=== PATIENT | male | born 1965 | race Caucasian/White ===

== ENCOUNTER 2016-11-08 06:15 | Inpatient (IN) | payer OTHER, MEDICAID ==
[~2016-11-08] VITALS: Ht 200.7 cm; Wt 95.7 kg
[2016-11-08] VITALS (12 sets, daily range): BP systolic 94–132; BP diastolic 60–90; PULSE 61–80; RESP 9–20; O2SAT 94–100
[~2016-11-08 06:15] MED LIST: BUPR100T7 PO; CeFAZolin Inj 2 GM in IV Premix 1 EACH IV SCH; GABA-502 PO; HYDR-3605 PO; IBUP800T28 PO; LORA1TAB PO; Lactated Ringer's 1,000 ML IV ONE; MULT-1018 PO; OMEP20TA86 PO; PROP60TA17 PO; QUET400T35 PO; VIT1TABL83 PO; Vancomycin Inj 1,000 MG in IV Premix 1 EACH IV ONE
[2016-11-08] MEDS ORDERED: Lactated Ringer's 1,000 ML IV ONE ×3 (06:51→10:53)
--- NOTE | 2016-11-08 07:10 | PCM.HPANE ---
Patient Data Surgeon Admitting Provider: Attending Provider:Tate Olsen DO Primary Care Physician:Tate Grant MD Other Provider:David Crouch Anesthesia Reason for Visit Right Hip Loosening Of Prosthetic RIGHT HIP LOOSENING OF PROSTHETIC Ht/WT & BMI Height (Feet): 6 Height (Inches): 7.00 Weight (Kilograms): 95.7 Body Mass Index 23.00 Allergies Coded Allergies: lisinopril (Verified Allergy, Unknown, 10/29/16) Past Anesthesia History Anesthesia History: Denies:: Abnormal Airway, Anesthesia Reactions, Difficult Intubation, Fam Anesthesia Reaction, Fam Malignant Hypertherm, Malignant Hyperthermia Diabetes History Hx Diabetes?: No Medications Home Meds Incl Beta Naila: Yes Reported Medications Bupropion ER (Wellbutrin SR)100 Mg Tablet.er200 Mg PO DAILY Ref 0 10/29/16 Vit B Comp/C/FA/Iron/Vit E (Vitamin B Complex Tablet)1 Each Tablet1 Each PO DAILY 10/29/16 Quetiapine Fumarate 400 Mg [id number] Mg PO DAILY Ref 0 10/29/16 Propranolol HCl 60 Mg [id number] Mg PO BID 10/29/16 Omeprazole 20 Mg Tablet.dr20 Mg PO DAILY 10/29/16 Multivitamin (Multi Vitamin Daily)1 Each Tablet1 Each PO DAILY 30 Days Ref 0 10/29/16 Lorazepam 1 Mg Tablet2 Mg PO TID PRN For Anxiety Ref 0 10/29/16 Ibuprofen 800 Mg [id number] Mg PO TID PRN For Pain Ref 0 10/29/16 HydrOXYzine HCl 10 Mg [id number] Mg PO DAILY PRN For Anxiety Ref 0 10/29/16 Gabapentin 300 Mg [id number] Mg PO TID Ref 0 10/29/16 History History of ENT Problems?: No HEENT History: Denies:: Abnormal Airway Cataracts Difficult Intubation Dysphagia Glaucoma Hearing Problem Sinus Problem TMJ Denture Type: None Teeth Condition: Within Normal Limits Hx of Heart Problems?: Yes Cardiovascular History: Denies:: AICD Abdominal Aortic Aneurism Atrial Fibrillation Cardiac Surgery Chest Pain Congestive Heart Failure Coronary Artery Disease Edema Heart Murmur Hypertension Irregular Heartbeat Pacemaker Peripheral Vascular Rheumatic Fever Thrombophlebitis Valvular Heart Disease Hx of Respiratory Problem?: No Respiratory History: Denies:: Asthma COPD Chest Surgery Cough Dyspnea Emphysema Hemoptysis Oxygen Administration Pneumonia Pulmonary Embolism Tuberculosis Use of C-PAP Machine Use of Inhalers / NEBS Hx Neurologic Problems?: Yes Neurological History: Positive for:: Peripheral Neuropathy Denies:: Alzheimer's Disease CVA Dementia Dizziness Headaches Multiple Sclerosis Parkinson's Disease Seizures TIA Other Neurological Pertinent: hx of guillian barre syndrome 2012- neuropathies Hx of GI Problems?: Yes Gastrointestinal History: Denies:: Cirrhosis Diverticulitis Gall Bladder Disease Gastroesphageal Reflux Gastrointestinal Bleeding Heartburn Hepatitis Hiatal Hernia Liver Disease Rectal Bleeding Hx of Problems?: No Genitourinary History: Denies:: HX of Hemodialysis Kidney Stones Urinary Tract Infection Male Hx: Denies:: Prostate Problems Scrotal Mass Testicular Surgery Skin History: Denies:: History Skin Disorders? Pressure Ulcers Hx Musculoskeletal Problems?: Yes Musculoskeletal History: Positive for:: Joint Replacement (prior right hip ( failure)) Musculoskeletal Trauma (right hip current admission problem) Osteoarthritis Denies:: Back Injury Degenerative Joint Fibromyalgia Myasthenia Gravis Rheumatoid Arthritis Systemic Lupus Hx of Psycho/Social Problems?: Yes Psycho Social History: Positive for:: Anxiety Hx Depression Denies:: Bipolar Disorder Suicide Attempt Hx Surgeries?: Yes (right total hip) Hx Any Other Health Problems?: Yes Other History: Denies:: Cancer Endocrine Disease Hospitalization Thyroid Disease History Blood Transfusions: Denies:: Accept Blood Products? Blood Transfuse Reaction Blood Transfusions Hx Diabetes: No Hx Alcohol Use: Yes (prior hx of etoh abuse)Hx Substance Use: No Smoking Status: Former Smoker Have You Smoked inLast 12 mo: No Stop/Bang S-Snoring: Do You Snore Loudly: No T-Tired: feel tired, fatigued: Yes O-Obsered: Observed not breath: Yes P-Blood Pressure: treated: Yes B- Body Mass Index > 35 kg/m2: No A- Age over 50: Yes N- Neck Large Circumference: No G- Gender Male: Yes CAROL Total Score: 5 Risk Assessment Category Category 1A: Patient has history of documented sleep apnea, and HAS NOT received any narcotic, sedative or anesthesia administration during this stay. Category 1B: Patient has history of documented sleep apnea, and HAS received any narcotic , sedative or anesthesia administration during this stay Category 2: Patient has SUSPECTED Obstructive Sleep Apnea, and HAS received any narcotic , sedative or anesthesia administration during this stay. Category 3: Patient has SUSPECTED Obstructive Sleep Apnea and HAS NOT received narcotic, sedative or anesthesia administration during this stay. Category 4: Outpatient in Procedural Areas with known sleep apnea or who screen positive for High Risk via the STOP/BANG questionnaire. Exam Exam Vital Signs Vital Signs Date Time Temp Pulse Resp B/P Pulse Ox O2 Delivery O2 Flow Rate FiO2 11/08/16 07:00 80 20 127/90 96 Room Air General Appearance: Alert, Oriented X3, Cooperative HEENT/AIRWAY: MP 2, Neck Movement (50% expected ROM), Mouth Opening (WNL) Lungs: Clear to Auscultation Heart: Exam Unremarkable Meds/Labs/Diagnostics Admission Meds Current Medications Vancomycin/0.9 % Sod Chloride 1000 mg/Premix 200 ml @ 133.333 mls/hr PREOP ONCE IV Last administered on 11/08/16 06:52; Start 11/08/16 at 06:00; Stop at 07:29 Lactated Ringer's (Lr) 1,000 ml @ ud STK-MED ONCE IV Last administered on 11/08 06:51; Start 11/08/16 at 06:51; Stop 11/08/16 at 06:52; Status DC Plan Impression Patient chart reviewed, patient interviewed and anesthestic plan with risks, benefits, and alternatives discussed, and informed consent obtained. ASA Physical Status: ASA2 Mod Systemic Disease Anesthetic Plan: GA Bene/Risks/Altern/Consents: Yes HP Complete Prior to Induction: Yes Other Patient declines SAB with Morphine. Prefers Straight GA. Denies ETOH in last two days. Denies Abusing ETOH > 1 year. Hadley Angulo MD Nov 08, 2016 07:10
[2016-11-08] MEDS ORDERED: Bupivacaine Liposome 1.3% 20 mL Inj ONE (07:16)
[2016-11-08] MEDS: Tranexamic Acid Inj 1,000 MG in 0.9% Sodium Chloride 100 ML IV SCH ×2 (08:00→11:23)
--- NOTE | 2016-11-08 08:18 | DRSVH ---
PROCEDURE: X-RAY PELVIS ONE OR TWO VIEWS ([id number]) INDICATIONS: RIGHT FAILED HIP TECHNIQUE: One view of the lower pelvis acquired. COMPARISON: [place], [place], BONE SCAN WHOLE BODY, 03/21/2015, 13:15. [facility] [place], [place], XR PELVIS W LATERAL HIP RT, 03/07/2015, 11:39. [facility], [place], XR PELVI S W LATERAL HIP RT, 06/24/2016, 11:17. FINDINGS: Bones: Patient is status post right hip arthroplasty, with hardware components in expected positions . The hip joint appears congruent. The visualized bony structures appear intact. Periprosthetic law cency again seen involving the proximal femoral stem component not significantly changed from the jeimy or examination. There is mild left hip joint degeneration and minimal degenerative change within the lower lumbar spine. Soft tissues: Overlying postoperative changes are noted. No suspicious soft tissue densities. IMPRESSION: 1. Stable positioning right hip arthroplasty and persistent periprosthetic lucency along the femoral stem redemonstrated. Dictated by: Nabeel NICOLE Interpreted: Emily Vasquez MD on 11/08/2016 at 8:10 Transcribed by: PATEL on 11/08/2016 at 11:17 Approved by: Emily Vasquez M.D. on 11/08/2016 at 16:52
[2016-11-08] MEDS ORDERED: Lactated Ringer's 1,000 ML IV SCH (08:19)
[2016-11-08] MEDS ORDERED: Lactated Ringer's 500 ML IV PRN (08:19)
[2016-11-08] MEDS ORDERED: Ondansetron 2 mg/mL 2 mL Inj IVPUSH PRN ×2 (08:20→12:10)
[2016-11-08] MEDS ORDERED: Dexamethasone 4 mg/mL Inj IVPUSH PRN (08:20)
[2016-11-08] MEDS ORDERED: HYDROmorphone 1 mg/mL Inj IVPUSH PRN ×2 (08:20→12:10)
[2016-11-08] MEDS ORDERED: Labetalol 5 mg/mL 20 mL Inj IV PRN (08:20)
[2016-11-08] MEDS ORDERED: Atropine 0.4 mg/mL Inj IVPUSH PRN (08:20)
[2016-11-08] MEDS ORDERED: Phenylephrine 10,000 mCg/mL Inj IVPUSH PRN (08:20)
[2016-11-08] MEDS ORDERED: fentaNYL-PF 50 mCg/mL 2 mL Inj IVPUSH PRN (08:20)
[2016-11-08] MEDS ORDERED: EPHEDrine Sulfate 50 mg/mL Inj IVPUSH PRN (08:20)
[2016-11-08] MEDS ORDERED: Bupivacaine-MPF 0.25% 30 mL Inj INFILTRATE ONE (08:27)
[2016-11-08] MEDS ORDERED: 0.9% Sodium Chloride 10 mL Inj INFILTRATE ONE (08:27)
[2016-11-08] MEDS ORDERED: Bupivacaine Liposome 1.3% 20 mL Inj INFILTRATE ONE (08:27)
[2016-11-08] MEDS ORDERED: Polyethylene Glycol (PEG) 17 Gm Powder PO PRN (12:10)
[2016-11-08] MEDS ORDERED: Magnesium Hydroxide 10 mL Oral Concentration PO PRN (12:10)
[2016-11-08] MEDS ORDERED: diphenhydrAMINE 25 mg Capsule PO PRN (12:10)
--- NOTE | 2016-11-08 12:57 | DRSVH ---
PROCEDURE: X-RAY PELVIS W/LAT HIP (RT) ([id number]) INDICATIONS: post op- long stem TECHNIQUE: AP pelvis and lateral view of the right hip acquired. COMPARISON: [facility], [place], XR PELVIS W LATERAL HIP RT, 06/24/2016, 11:17. [facility] [place], [place], XR PELVIS W LATERAL HIP RT, 03/07/2015, 11:39. FINDINGS: There has been an interval revision of the right hip arthroplasty with a total right hip arthroplasty and a medium to long right femoral stem. A metallic prosthetic components are intact. No periprost atic fractures are evident. There is no dislocation. Expected postoperative changes within the soft tissues overlying the right hip are present with areas of soft tissue edema and soft tissue air. No unexpected radiopaque foreign bodies are appreciated. IMPRESSION: Expected postoperative changes related to interval revision of the right hip arthroplasty . Dictated by: Humphrey Steward M.D. on 11/08/2016 at 11:54 Approved by: Humphrey Steward M.D. on 11/08/2016 at 11:55
[2016-11-08] MEDS: 0.9% Sodium Chloride 1,000 ML IV SCH (13:23)
[2016-11-08] MEDS ORDERED: Propofol 10,000 mCg/mL 20 mL Inj ONE (13:24)
[2016-11-08] MEDS ORDERED: Phenylephrine/NS 100 mCg/mL 10 mL Syringe IVPUSH ONE (13:24)
[2016-11-08] MEDS ORDERED: Glycopyrrolate 0.2 MG/ML 1mL Inj ONE (13:24)
[2016-11-08] MEDS ORDERED: EPHEDrine/NS 5 mg/mL 5 mL Syringe ONE (13:24)
[2016-11-08] MEDS ORDERED: HYDROmorphone 1 mg/mL Inj ONE (13:24)
[2016-11-08] MEDS ORDERED: fentaNYL-PF 50 mCg/mL 2 mL Inj ONE (13:24)
[2016-11-08] MEDS ORDERED: Rocuronium 10 mg/mL 5 mL Inj ONE (13:24)
[2016-11-08] MEDS ORDERED: Neostigmine 1 mg/mL 10 mL Inj ONE (13:24)
--- NOTE | 2016-11-08 13:40 | PCM.ANEP1 ---
Post Anesthesia PACU Phase 1 Assessment Vital Signs Vital Signs Date Time Temp Pulse Resp B/P Pulse Ox O2 Delivery O2 Flow Rate FiO2 11/08/16 13:32 36.5 61 16 120/81 100 Nasal Cannula 2.00 11/08/16 12:59 72 14 107/66 99 Nasal Cannula 4 11/08/16 12:50 66 10 100/63 99 Nasal Cannula 4 11/08/16 12:39 36.6 68 11 96/60 94 Nasal Cannula 4 11/08/16 12:30 63 11 94/67 99 Nasal Cannula 4 11/08/16 12:25 68 14 106/69 95 Nasal Cannula 4 11/08/16 12:20 67 12 100/67 98 Nasal Cannula 4 11/08/16 12:15 36.4 68 9 102/69 100 Simple Mask 8 11/08/16 07:00 80 20 127/90 96 Room Air Anesthetic Administered: GA Level of Alertness: Awake, talking ZAIDI's with Equal Strength: Yes Pain: Yes (8-9 pain) Nausea or Vomiting: No CV Function & Hydration Stable: Yes Airway Device: Oxygen Delivery: Room Air Lungs: Clear to Auscultation PACU Phase 2 Assessment Complications: No Follow up Care: No Patient Instructions Provided: N/A Hadley Angulo MD Nov 08, 2016 13:40
[2016-11-08] MEDS: Pantoprazole 20 mg ER24 Tablet PO SCH (14:06)
[2016-11-08] MEDS ORDERED: HYDROXYZINE 10 MG PO PRN (14:10)
--- NOTE | 2016-11-08 14:19 | PCM.CHPMED ---
Subjective Date of Service: Nov 08, 2016 Primary Physician: Admitting Physician: Tate Olsen DO Primary Care Physician: Tate Grant MD Attending Physician: Tate Olsen DO History of Present Illness: Patient is a 51 yo male with pmh of anxiety, alcohol abuse, guillain barre syndrome (2010), HTN, who has been admitted after a total hip replacement. Patient has had partial hip replacement after his ground level fall, however pain never improved and is admitted for full replacement. The procedure was today, and went well. He complains of pain, however says its in control with pain meds. He is post anesthesia, so his speech is slightly slow. He mentioned he has had alcohol withdrawls causing seizures in the past. He remembers his last drink being about 7 days ago. Review of Systems: Constitutional: Denies: Chills, Fever, Malaise, Other, Sweats, Weakness Eyes: Denies: Blurred Vision, Conjunctive Inflammation, Double Vision, Eyelid Inflammation, Other, Pain, Redness, Vision Changes ENT: Denies: Dental Problems, Dysphagia, Ear Discharge, Ear Pain, Hoarseness, Membranes Dry, Nasal Congestion, Nose Discharge, Nose Pain, Other, Throat Pain, Tinnitus, Ulcers/Sores in Mouth Neck: Denies: Mass, Other, Pain, Swelling Cardiovascular: Denies: Chest Pain, Edema, Irregular Heart Rate, Other, Palpitations, Rapid Heart Rate, SOB on Exertion, SOB while laying flat Respiratory: Denies: Cough, Cough with bloody sputum, Other, SOB with Exertion , Shortness of Breath, Snoring, Sputum, Wake up Gasping for Breath, Wake up SOB , Wheezing Gastrointestinal: Denies: Abdominal Pain, Black tarry stools, Blood in stool ( red), Change in Appetite, Constipation, Diarrhea, Heartburn, Nausea, Other, Use of Laxatives, Vomiting Genitourinary: Denies: Change in Frequency, Decrease Urinary Output, Decrease Urinary Stream, Dysuria, Has burning or pain with urination, Hematuria, Hemodialysis, Incontinence, No burning or pain with urination, Nocturia, Other, Peritoneal Dialysis Reproductive Male: Denies: Erectile Dysfunction, Other, Sexually Active, Venereal Disease Musculoskeletal: Reports: Other (as per HPI) Skin: Denies: Blisters, Bruising, Dry or Flakiness, Itching, Lesions, Other, Rash, Redness, Ulcers Neurological: Denies: Change in LOC, Change in Speech, Confusion, Difficulty Walking, Dizziness, Double Vision, Drooping Mouth, Incoordination, Localized Weakness, Numbness, Other, Seizures, Somnolence, Tremors, Vertigo Psychologic: Denies: Agitation, Anxiety, Depression, Insomnia, Other, PTSD- Post Traumatic Stress Disorder, Suicidal Thoughts Endocrine: Denies: Abnormal Hair Growth, Blood Glucose Review, Diaphoresis, Excessive Thirst, Intolerant to Cold, Intolerant to Heat, Other, Recent A1C, Urinating Frequently, Weight Gain Hematologic: Denies: Abnormal Bleeding, Bruising, Other Lymphatic: Denies: Adenopathy, Swollen Lymph Node Above Collarbone, Swollen Lymph Nodes in Neck, Tender Lymph Nodes Axillia, Tender Lymph Nodes Groin PMH Past Medical History Guillain Lizemores HTN Anxiety Alcohol abuse with severe withdrawls Hx Diabetes: No Allergies: Coded Allergies: lisinopril (Verified Allergy, Unknown, 10/29/16) Social History Hx Alcohol Use: Yes (prior hx of etoh abuse)Hx Substance Use: No Smoking Status: Former Smoker Exam Vital Signs Vital Sign - Last Date Time Temp Pulse Resp B/P Pulse Ox O2 Delivery O2 Flow Rate FiO2 11/08/16 13:58 Supplement Oxygen 11/08/16 13:32 36.5 61 16 120/81 100 2.00 Intake and Output 11/07/16 11/07/16 11/08/16 Cumulative From/Thru 15:00 23:00 07:00 10/29/16 15:19 - 11/08/16 06:55 Intake Total 200 ml 200 ml Balance 200 ml 200 ml Intake IV Total 200 ml 200 ml General: Alert, Oriented X3, Cooperative Head: Normal Eyes: PERRLA Mouth: Lips, Mouth Normal, Mucous Membranes Dry Neck: Supple Chest & Lungs: Chest Wall Normal, Clear to auscultation & percussion Cardiovascular: Exam Unremarkable, Regular Rate/Rhythm, Normal S1, Normal S2 Abdomen: Non-tender, Non-distended, Benign Musculoskeletal: Other (Bandaged after procedure, no signs of bleeding, ) Extremities: Normal bilaterally, Other (circulation intact) Neurological: Grossly Neurologically Intact, Cranial Nerves 2-12 Intact, Normal Speech, Strength Normal 4/4 ext Assessment & Plan Assessment Patient is a 51 yo male with pmh of anxiety, alcohol abuse, guillain barre syndrome (2010), HTN, who has been admitted after a total hip replacement. > Hip replacement - managed by primary team > h/o Alcohol abuse with sever withdrawals -last drink 7 days ago, will check alcohol level - unlikely to go in withdrawals, will monitor on tele > HTN - temporarily hyptensive post procedure - on propranolol at home, will continue at home dose later in the evening > Anxiety - on multiple meds : buproprion, hydroxyzine, Quetiapine and lorezapam - will continue home meds, pls hold the medication if patient is drowsy > h/o Guillian Lizemores - currently stable, has been treated - will monitor Will continue to follow the patient along with the primary team. I appreciate getting us involved in this patient's care. [place] Team : [phone] Problems: Pain Evaluation: Adequate Pain Control VTE Prophylaxis: Other (as per ortho) Resuscitation Status: CPR: Attempt Resuscitation Time spent 35 mins Woo Marcano MD Nov 08, 2016 14:19
[2016-11-08 14:37] LABS: BASOPHILS % (AUTO) 0.2 % (0-3); EOSINOPHILS % (AUTO) 0.9 % (0-5); Mean Corpuscular Hemoglobin 31.3 pg (27.0-35.0); Mean Corpuscular Volume 91.5 fL (81-100); NEUTROPHILS % (AUTO) 67.6 % (40-74); Platelet Count 173 bil/L (150-400)
[2016-11-08] MEDS: hydrOXYzine Pamoate 25 mg Capsule PO PRN (16:00)
[2016-11-08] MEDS: oxyCODONE-Acetamin 5-325 mg Tablet PO PRN ×2 (16:01→21:30)
[2016-11-08] MEDS ORDERED: CeFAZolin Inj 2 GM in IV Premix 1 EACH IV SCH ×2 (16:30→19:00)
[2016-11-08] MEDS: Sodium Chloride LOK Flush 10 mL Syringe IV SCH (16:30)
[2016-11-08] MEDS: Senna-Docusate 8.6-50 mg Tablet PO SCH (21:31)
--- NOTE | 2016-11-08 21:47 | OP ---
[address] [address] OPERATIVE REPORT PATIENT: DIALLO LAO : 1965 MR#: [id number] ADMIT: 11/08/2016 JOB ID: [id number] DATE OF SURGERY: 11/08/2016 PREOPERATIVE DIAGNOSIS(ES): Right hip failed hemiarthroplasty. POSTOPERATIVE DIAGNOSIS(ES): Right hip failed hemiarthroplasty. PROCEDURE: Right hip hemiarthroplasty revision to total hip arthroplasty. SURGEON: Tate Olsen DO. CLERK GENERAL: Merline Berger PA-C. INDICATIONS: The patient is a 51-year-old male who had a right femoral neck fracture and was treated with a calcar replacing hemiarthroplasty which ultimately failed and subsided, and he was having pain in the right hip and wished to proceed with a revision/conversion to a right total hip arthroplasty. We discussed the risks, benefits, and possible complications of surgery including, but not limited to injury to nerves and vessels, infection, bleeding, incomplete relief of symptoms, dislocation, need for additional procedures. The patient had good understanding. All questions were answered and he wished to proceed. He states that he has been clean and sober in preparation for surgery. A surgical garment inspector was required for the successful completion of this procedure. PROCEDURE IN DETAIL: The patient was brought to the operating room. He was given a preoperative antibiotic, 1 g TXA preoperatively and placed into the lateral decubitus position. The right hip was sterilely prepped and draped. An incision was made centered over the trochanter using his previous incision. Dissection was carefully carried through the subcutaneous tissue and electrocautery was used for hemostasis. A split was then made in the iliotibial band in line with the skin incision and the Charnley retractor was then placed. His old suture material was carefully removed from the wound. A split was then made in the junction between the anterior one-third and the posterior two-thirds in the gluteus medius and Hohmann retractors were placed on either side of the prosthesis on the neck. A triangular portion of capsule was then resected and an anterior sleeve of tissue was released off of the trochanter, leaving a cuff of tissue for repair. This was taken to a point just distal to the vastus tubercle and the sleeve was taken around to remove all soft tissue off the proximal femur in order to gain access to his prosthesis. Using a knife, pickups, and osteotomes, the soft tissue around the femoral stem was dissected free. The bipolar head was removed and osteotomes were used to carefully free up the prosthesis which had some motion present but was not easily removed. We then used a vise performing arts road manager slap hammer to carefully remove the femoral stem, removing cement as we went. This was carefully removed so as not to fracture his femur. Removal of the femoral stem was quite difficult and took 1.5 hours. After this was completed and the cement was removed, the distal cement plug was addressed using an Ultra-Drive ultrasound device. This was placed to gain access to the distal plug and then back slap it out; however, after several attempts, the distal plug simply advanced distally into the femur and could not be retrieved. Next we addressed the acetabulum and anterior and posterior acetabular retractors were placed at the 3 o'clock and 9 o'clock positions, respectively. The labrum and excess capsule were resected and the acetabulum was reamed sequentially up to a 57 for a 58 cup. He had excellent bleeding bone. The 58 Menno three-hole cup was impacted into position. Care was taken to ensure the appropriate abduction and anteversion and further secured with two screws. A 36 neutral liner was chosen and impacted into position. Next, the femur was addressed and this was reamed for a 190 mm stem for gBoxuy Reclaim hip revision system. This was reamed carefully up by hand up to 18 for a 190 mm straight reamer. The 18 stem was inserted and fit quite nicely and then we reamed up with the proximal body to a 24 and then trialed with the stem. It was a bit proud and too tight and went back to the Reclaim distal tapered stem and were able to impact this for about 5 mm further and then placed the 75 mm body. Trialed this with a +4/36 head and it seemed to fit quite nicely, allowing excellent range of motion, great stability, equal leg lengths. These components were chosen and the Reclaim 24 x 75 proximal body was inserted. Care was taken to ensure the appropriate anteversion and this was impacted and then torqued onto the distal stem, and then the locking bolt was added. A 5 mm, 36 ceramic head was chosen, impacted into position. The hip was reduced. Had excellent range of motion, great stability. The wound was irrigated copiously and then a second gram of TXA was added and the wound was closed with #5 Ethibond to repair the capsule and to repair the gluteus medius. The remainder of the gluteus medius and vastus lateralis was repaired with #1 Surgilon. The iliotibial band was repaired with #1 Surgilon and 0-Vicryl. The subcu was closed with a running 2-0 V-Loc and the skin was closed with a running 3-0 Stratafix suture. A mixture of Marcaine, saline, and Exparel was added as an adjunct local anesthetic. Sterile dressings were applied. Patient tolerated the procedure well. BLOOD LOSS: 350 cc. POSTOPERATIVE PROTOCOL: Have the patient weightbear to tolerance. Use a walker for ambulation. Will ask for hospitalist consultation regarding this patient as he did have a couple of episodes of desatting and hypotension during surgery, though they resolved with anesthesia management. Plan to use aspirin for DVT prophylaxis.
[2016-11-08] MEDS: LORazepam 1 mg Tablet PO PRN (22:03)
[2016-11-09] MEDS: 0.9% Sodium Chloride 1,000 ML IV SCH ×3 (00:06→15:02)
[2016-11-09] MEDS: Sodium Chloride LOK Flush 10 mL Syringe IV SCH ×4 (00:08→15:03)
[2016-11-09] MEDS: oxyCODONE-Acetamin 5-325 mg Tablet PO PRN ×5 (03:58→22:56)
[2016-11-09 04:35] VITALS: BP 103/66; PULSE 91; RESP 17; O2SAT 95
[2016-11-09] MEDS ORDERED: CeFAZolin Inj 2 GM in IV Premix 1 EACH IV SCH (05:30)
[2016-11-09 05:32] LABS: BASOPHILS % (AUTO) 0.3 % (0-3); MONOCYTES % (AUTO) 15.1 % (4-12); Mean Corpuscular Hemoglobin 31.6 pg (27.0-35.0); Mean Corpuscular Volume 92.1 fL (81-100); NEUTROPHILS % (AUTO) 56.4 % (40-74); Platelet Count 164 bil/L (150-400)
[2016-11-09] MEDS: Pantoprazole 20 mg ER24 Tablet PO SCH (05:47)
--- NOTE | 2016-11-09 08:18 | PCM.PNORTH ---
Subjective Date of Service: Nov 09, 2016 Visit Information: Reason for Visit Right Hip Loosening Of Prosthetic Surgery/Surgery Date R ALEXYS REVISION 11/08/16 Post-Op Day # 1 Date of Admission: Nov 08, 2016 at 13:23 Hospital Day # Subjective Patient states he is experiencing moderate amounts of pain and admits to having anxiety. He states he is taking two pain pills at a time right now. He is asking for his Ativan that he takes at home. Postop General: No Shortness of Breath, No Chest Pain Pain Management: PO Objective Exam Objective Patient laying in bed Vital Signs and I/O Vital Sign - Last Date Time Temp Pulse Resp B/P Pulse Ox O2 Delivery O2 Flow Rate FiO2 11/09/16 04:35 37.8 91 17 103/66 95 Room Air 11/08/16 23:59 2.00 Intake and Output 11/08/16 11/08/16 11/09/16 Cumulative From/Thru 15:00 23:00 07:00 10/29/16 15:19 - 11/09/16 05:24 Intake Total 3070 ml 1153 ml 1037 ml 5460 ml Output Total 530 ml 150 ml 1300 ml 1980 ml Balance 2540 ml 1003 ml -263 ml 3480 ml Intake Oral 600 ml 1037 ml 1637 ml IV Total 3070 ml 553 ml 3823 ml Output Urine Total 180 ml 150 ml 1300 ml 1630 ml Estimated Blood Loss 350 ml 350 ml # Bowel Movements 0 0 Lab & Micro Results Laboratory Tests Test 11/08/16 14:10 11/08/16 14:23 11/09/16 04:42 Sodium Level 143mEq/L (134-144) 140mEq/L (134-144) Potassium Level 3.6mEq/L (3.5-5.2) 3.6mEq/L (3.5-5.2) Chloride Level 107mEq/L (97-108) 105mEq/L (97-108) Carbon Dioxide Level 25mmol/L (18-29) 25mmol/L (18-29) Blood Urea Nitrogen 14mg/dL (6-24) 14mg/dL (6-24) Creatinine 0.69mg/dL (0.76-1.27) 0.70mg/dL (0.76-1.27) Estimat Glomerular Filtration Rate 127mL/min (>59) 125mL/min (>59) Glucose Level 105mg/dL (60-99) 154mg/dL (60-99) Calcium Level 7.7mg/dL (8.5-10.1) 7.9mg/dL (8.5-10.1) Alcohols < 10mg/dL (0-10) White Blood Count 5.3th/mm3 (3.8-10.1) 3.4th/mm3 (3.8-10.1) Red Blood Count 3.16mil/mm3 (4.40-5.80) 2.66mil/mm3 (4.40-5.80) Hemoglobin 9.9g/dL (13.8-17.2) 8.4g/dL (13.8-17.2) Hematocrit 28.9% (41.0-50.0) 24.5% (41.0-50.0) Mean Corpuscular Volume 91.5fL (81-100) 92.1fL (81-100) Mean Corpuscular Hemoglobin 31.3pg (27.0-35.0) 31.6pg (27.0-35.0) Mean Corpuscular Hemoglobin Concent 34.3% (32.0-37.0) 34.3% (32.0-37.0) Red Cell Distribution Width 14.4% (12.3-15.4) 14.1% (12.3-15.4) Platelet Count 173bil/L (150-400) 164bil/L (150-400) Neutrophils (%) (Auto) 67.6% (40-74) 56.4% (40-74) Lymphocytes (%) (Auto) 17.7% (14-46) 24.9% (14-46) Monocytes (%) (Auto) 13.0% (4-12) 15.1% (4-12) Eosinophils (%) (Auto) 0.9% (0-5) 3.0% (0-5) Basophils (%) (Auto) 0.2% (0-3) 0.3% (0-3) Microbiology 11/08/16 Gram Stain - Final, Resulted 11/08/16 Culture & Sensitivity, Resulted Pending 11/08/16 Anaerobic Culture, Resulted Pending Result Diagram: 11/09/16 0442 11/09/16 0442 General Appearance: Alert, Oriented X3, Cooperative, No Acute Distress Extremities: Distal Pulses Palpable, No Compartment Syndrom Noted Postop Sensory Motor: Distal Motor Intact, Movement in Toes, Distal Sensation Intact, NVI Distally SURGICAL WOUND : Wound Location/Description Perioperative dressings c/d/i Dressing & Drainage Status: Intact Activity: Ambulate with PT (WBAT c FWW) Assessment & Plan Impression POD#1 right hip revision from a hemiarthroplasty to total arthroplasty Problems: Plan Weightbearing: Weightbearing as tolerated with wheeled walker DVT prophylaxis: Aspirin 325 mg twice a day 6 weeks. Wound care: Preoperative dressing will be changed to island dressing by PA Shower instructions: If incision is dry, absent drainage, patient may shower with incision uncovered beginning tomorrow. Analgesia: Percocet and Vistaril should both be used. Discharge plan: Discharge home in 1-2 days. Follow-up plan: In 2 weeks at [facility] with GOMEZ for wound check and at [address] Olsen with x-rays VTE Prophylaxis: Other (as per ortho) Resuscitation Status: CPR: Attempt Resuscitation Ama Vela PA-C Nov 09, 2016 08:14
--- NOTE | 2016-11-09 08:46 | PCM.PNMED ---
Subjective Date of Service Nov 09, 2016 Subjective Patient seen and examined. Had some auditory hallucinations last night. He said he could hear the IV machine saying " good job alexander", which subsided as soon as the beeping stopped. Today morning doing good, pain in control. Vitals stable. Exam Vital Signs Vital Sign - Last Date Time Temp Pulse Resp B/P Pulse Ox O2 Delivery O2 Flow Rate FiO2 11/09/16 04:35 37.8 91 17 103/66 95 Room Air 11/08/16 23:59 2.00 Intake and Output 11/08/16 11/08/16 11/09/16 Cumulative From/Thru 15:00 23:00 07:00 10/29/16 15:19 - 11/09/16 05:24 Intake Total 3070 ml 1153 ml 1037 ml 5460 ml Output Total 530 ml 150 ml 1300 ml 1980 ml Balance 2540 ml 1003 ml -263 ml 3480 ml Intake Oral 600 ml 1037 ml 1637 ml IV Total 3070 ml 553 ml 3823 ml Output Urine Total 180 ml 150 ml 1300 ml 1630 ml Estimated Blood Loss 350 ml 350 ml # Bowel Movements 0 0 Exam General: Alert, Oriented X3, Cooperative Chest & Lungs: Chest Wall Normal, Clear to auscultation & percussion Cardiovascular: Exam Unremarkable, Regular Rate/Rhythm, Normal S1, Normal S2 Abdomen: Non-tender, Non-distended, Benign Musculoskeletal: Other (Bandaged after procedure, no signs of bleeding, ) Extremities: Normal bilaterally, Other (circulation intact) Neurological: Grossly Neurologically Intact, Cranial Nerves 2-12 Intact, Normal Speech, Strength Normal 4/4 ext Lab and Diagnostics Result Diagram: 11/09/1644111/09/16441 Assessment & Plan Patient is a 51 yo male with pmh of anxiety, alcohol abuse, guillain barre syndrome (2010), HTN, who has been admitted after a total hip replacement. > Hip replacement - managed by primary team - PT today > h/o Alcohol abuse with sever withdrawals -last drink 7 days ago, alcohol levels negligible - unlikely to go in withdrawals, will monitor on tele > HTN - temporarily hyptensive post procedure , resolved - expected to be mildy hpertensive due to pain, especially when doing physical therapy - on propranolol at home, will continue at home dose > Anxiety - on multiple meds : buproprion, hydroxyzine, Quetiapine and lorezapam - will continue home meds, pls hold the medication if patient is drowsy > h/o [place] - currently stable, has been treated - will monitor Will continue to follow the patient along with the primary team. I appreciate getting us involved in this patient's care. Pain Evaluation: Adequate Pain Control VTE Prophylaxis: Other (as per ortho) VTE Mechanical Devices: Intermittant Pneumatic CD Resuscitation Status: CPR: Attempt Resuscitation Time spent 35 mins Woo Marcano MD Nov 09, 2016 08:46
[2016-11-09] MEDS: Senna-Docusate 8.6-50 mg Tablet PO SCH ×2 (08:49→21:14)
[2016-11-09] MEDS: buPROPion SR 100 mg ER12 Tablet PO SCH (08:49)
[2016-11-09 08:51] VITALS: BP 104/70; PULSE 80; RESP 16; O2SAT 96
[2016-11-09] MEDS: LORazepam 1 mg Tablet PO PRN ×2 (09:55→21:14)
[2016-11-09 13:25] VITALS: BP 91/59; PULSE 74; RESP 16; O2SAT 95
[2016-11-09 14:00] VITALS: BP 82/53
[2016-11-09 14:07] VITALS: BP 90/62
[2016-11-09 19:30] VITALS: BP 99/67; PULSE 76; RESP 17; O2SAT 97
[2016-11-10] VITALS (7 sets, daily range): BP systolic 81–126; BP diastolic 53–86; PULSE 76–90; RESP 14–17; O2SAT 95–99
[2016-11-10] MEDS: 0.9% Sodium Chloride 1,000 ML IV SCH ×2 (04:49→15:15)
[2016-11-10] MEDS: oxyCODONE-Acetamin 5-325 mg Tablet PO PRN ×4 (04:50→23:56)
[2016-11-10 06:07] LABS: BASOPHILS % (AUTO) 0.4 % (0-3); MONOCYTES % (AUTO) 13.3 % (4-12); Mean Corpuscular Hemoglobin 31.1 pg (27.0-35.0); Mean Corpuscular Volume 92.9 fL (81-100); NEUTROPHILS % (AUTO) 55.9 % (40-74); Platelet Count 170 bil/L (150-400)
[2016-11-10] MEDS: Pantoprazole 20 mg ER24 Tablet PO SCH (07:28)
[2016-11-10] MEDS: Sodium Chloride LOK Flush 10 mL Syringe IV SCH ×2 (08:28→15:22)
--- NOTE | 2016-11-10 08:32 | PCM.PNORTH ---
Subjective Date of Service: Nov 10, 2016 Visit Information: Reason for Visit Right Hip Loosening Of Prosthetic Surgery/Surgery Date R ALEXYS REVISION 11/08/16 Post-Op Day # 2 Date of Admission: Nov 08, 2016 at 13:23 Hospital Day # Subjective Patient complains of incisional pain. If he needs to go to a SNF, he would prefer going to [place] which is closer for his mother to be able to visit him. He is progressing slowly with physical therapy and having difficulty with his restrictions. Postop General: No Shortness of Breath, No Chest Pain Pain Management: PO Objective Exam Objective Patient is seen sitting up in bed Vital Signs and I/O Vital Sign - Last Date Time Temp Pulse Resp B/P Pulse Ox O2 Delivery O2 Flow Rate FiO2 11/10/16 05:10 36.7 76 17 102/69 97 Room Air 11/08/16 23:59 2.00 Intake and Output 11/09/16 11/09/16 11/10/16 Cumulative From/Thru 15:00 23:00 07:00 10/29/16 15:19 - 11/10/16 06:04 Intake Total 1257 ml 1156 ml 7873 ml Output Total 1980 ml Balance 1257 ml 1156 ml 5893 ml Intake Oral 840 ml 1156 ml 3633 ml IV Total 417 ml 4240 ml Output Urine Total 1630 ml Estimated Blood Loss 350 ml # Voids 1 3 4 # Bowel Movements 0 0 0 Lab & Micro Results Laboratory Tests Test 11/10/16 05:15 White Blood Count 4.7th/mm3 (3.8-10.1) Red Blood Count 2.67mil/mm3 (4.40-5.80) Hemoglobin 8.3g/dL (13.8-17.2) Hematocrit 24.8% (41.0-50.0) Mean Corpuscular Volume 92.9fL (81-100) Mean Corpuscular Hemoglobin 31.1pg (27.0-35.0) Mean Corpuscular Hemoglobin Concent 33.5% (32.0-37.0) Red Cell Distribution Width 14.2% (12.3-15.4) Platelet Count 170bil/L (150-400) Neutrophils (%) (Auto) 55.9% (40-74) Lymphocytes (%) (Auto) 24.2% (14-46) Monocytes (%) (Auto) 13.3% (4-12) Eosinophils (%) (Auto) 6.0% (0-5) Basophils (%) (Auto) 0.4% (0-3) Sodium Level 142mEq/L (134-144) Potassium Level 3.6mEq/L (3.5-5.2) Chloride Level 106mEq/L (97-108) Carbon Dioxide Level 28mmol/L (18-29) Blood Urea Nitrogen 13mg/dL (6-24) Creatinine 0.67mg/dL (0.76-1.27) Estimat Glomerular Filtration Rate 132mL/min (>59) Glucose Level 93mg/dL (60-99) Calcium Level 8.1mg/dL (8.5-10.1) Microbiology 11/08/16 Gram Stain - Final, Resulted 11/08/16 Culture & Sensitivity - Preliminary, Resulted No growth to date 11/08/16 Anaerobic Culture, Resulted Pending Result Diagram: 11/10/16 0515 11/10/16 0515 General Appearance: Alert, Oriented X3, Cooperative, No Acute Distress Extremities: Distal Pulses Palpable, No Compartment Syndrom Noted, Thigh & Calf Soft/Nontender Postop Sensory Motor: Distal Motor Intact, NVI Distally SURGICAL WOUND : Wound Location/Description Surgical dressings are removed. Wound is well approximated and Steri-Strips are intact. Negative for drainage or erythema. The wound is cleansed with hydrogen peroxide and dressed with Silverlon and an Island dressing Activity: Ambulate with PT (WBAT c FWW) Catheters: None Assessment & Plan Impression POD #2 status post right hip revision total hip arthroplasty Problems: Plan Weightbearin% weightbearing right lower extremity with front-wheeled walker DVT prophylaxis: aspirin 325 mg twice a day 6 weeks Physical therapy for transfers, progressive ambulation, therapeutic exercise Wound care: Discharge plan: Discharge to SNF tomorrow for daily physical therapy & occupational therapy x 1 month. Patient is 50% weight bearing Follow-up plan: In 2 weeks at [facility] with GOMEZ for wound check and at [address] Olsen with x-rays Pain Management: Ibuprofen 800 mg, Toradol, Vistaril, Percocet VTE Prophylaxis: SCDs, Other (as per ortho) Resuscitation Status: CPR: Attempt Resuscitation ThomasMerline Guzman PA-C Nov 10, 2016 08:32
[2016-11-10] MEDS: Senna-Docusate 8.6-50 mg Tablet PO SCH ×2 (08:35→20:15)
[2016-11-10] MEDS: buPROPion SR 100 mg ER12 Tablet PO SCH (08:36)
[2016-11-10] MEDS: LORazepam 1 mg Tablet PO PRN ×2 (10:35→20:15)
--- NOTE | 2016-11-10 12:36 | PCM.PNMED ---
Subjective Date of Service Nov 10, 2016 Subjective Pt had low BP last night, Propranolol was held. Exam Vital Signs Vital Sign - Last Date Time Temp Pulse Resp B/P Pulse Ox O2 Delivery O2 Flow Rate FiO2 11/10/16 11:59 86/58 11/10/16 11:55 36.6 80 14 99 Room Air 11/08/16 23:59 2.00 Intake and Output 11/09/16 11/09/16 11/10/16 Cumulative From/Thru 15:00 23:00 07:00 10/29/16 15:19 - 11/10/16 06:04 Intake Total 1257 ml 1156 ml 7873 ml Output Total 1980 ml Balance 1257 ml 1156 ml 5893 ml Intake Oral 840 ml 1156 ml 3633 ml IV Total 417 ml 4240 ml Output Urine Total 1630 ml Estimated Blood Loss 350 ml # Voids 1 3 4 # Bowel Movements 0 0 0 Exam General: Alert, Oriented X3, Cooperative Chest & Lungs: Chest Wall Normal, Clear to auscultation & percussion Cardiovascular: Exam Unremarkable, Regular Rate/Rhythm, Normal S1, Normal S2 Abdomen: Non-tender, Non-distended, Benign Musculoskeletal: Other (Bandaged after procedure, no signs of bleeding, ) Extremities: Normal bilaterally, Other (circulation intact) Neurological: Grossly Neurologically Intact, Cranial Nerves 2-12 Intact, Normal Speech, Strength Normal 4/4 ext IVs and Medications Medications Reviewed: Medications were reviewed in detail Lab and Diagnostics Result Diagram: 11/10/1651411/10/16514 Assessment & Plan Patient is a 51 yo male with pmh of anxiety, alcohol abuse, guillain barre syndrome (2010), HTN, who has been admitted after a total hip replacement. > Hip replacement - managed by primary Surgery team - PT- Recs SNF. > h/o Alcohol abuse with sever withdrawals -last drink 7 days ago, alcohol levels negligible - unlikely to go in withdrawals, will monitor on tele > HTN - temporarily hypotensive post procedure with repeat episodes. Likely due to combination of narcotics, Lorazepam. - on propranolol at home, decreased dose to 30mg BID as pt says often takes 1 tablet every second day. - Pt will low BP, will hold Propranolol for now. Seems was started due to SNS Stimulation associated with GBS. - Would resume if BP becomes elevated. > Anxiety - on multiple meds : buproprion, hydroxyzine, Quetiapine - will continue home meds, pls hold the medication if patient is drowsy - Can continue Lorazepam at dec dose to 1mg TID for now, titrate back up as tolerate > h/o Vernlian [place] - currently stable, has been treated - will monitor Will continue to follow the patient along with the primary Surgery team. I appreciate getting us involved in this patient's care. VTE Prophylaxis: SCDs, Other (as per ortho) VTE Mechanical Devices: Intermittant Pneumatic CD Resuscitation Status: CPR: Attempt Resuscitation Lucio Flores MD Nov 10, 2016 12:35
[2016-11-10] MEDS: hydrOXYzine Pamoate 25 mg Capsule PO PRN (23:01)
[2016-11-11] MEDS: 0.9% Sodium Chloride 1,000 ML IV SCH (00:01)
[2016-11-11] MEDS: Sodium Chloride LOK Flush 10 mL Syringe IV SCH ×3 (00:02→17:19)
[2016-11-11] MEDS: oxyCODONE-Acetamin 5-325 mg Tablet PO PRN ×4 (04:51→18:30)
[2016-11-11 05:00] VITALS: BP 132/89; PULSE 81; RESP 17; O2SAT 98
[2016-11-11] MEDS: Pantoprazole 20 mg ER24 Tablet PO SCH (06:31)
--- NOTE | 2016-11-11 07:59 | PCM.PNORTH ---
Subjective Date of Service: Nov 11, 2016 Visit Information: Reason for Visit Right Hip Loosening Of Prosthetic Surgery/Surgery Date R ALEXYS REVISION 11/08/16 Post-Op Day # 3 Date of Admission: Nov 08, 2016 at 13:23 Hospital Day # Subjective Patient complains of pain and difficulty getting around. He lacks 15 feet with therapy yesterday. He has difficulty recalling the hip precaution positions. Postop General: No Shortness of Breath, No Chest Pain, Good Appetite Pain Management: PO Objective Exam Objective Patient is seen in bed Vital Signs and I/O Vital Sign - Last Date Time Temp Pulse Resp B/P Pulse Ox O2 Delivery O2 Flow Rate FiO2 11/11/16 05:00 36.8 81 17 132/89 98 Room Air 11/08/16 23:59 2.00 Intake and Output 11/10/16 11/10/16 11/11/16 Cumulative From/Thru 15:00 23:00 07:00 10/29/16 15:19 - 11/11/16 06:18 Intake Total 2610 ml 800 ml 12899 ml Output Total 400 ml 1750 ml 4130 ml Balance 2210 ml -950 ml 7153 ml Intake Oral 760 ml 800 ml 5193 ml IV Total 1850 ml 6090 ml Output Urine Total 400 ml 1750 ml 3780 ml Estimated Blood Loss 350 ml # Voids 4 # Bowel Movements 0 0 0 Lab & Micro Results Microbiology 11/08/16 Gram Stain - Final, Resulted 11/08/16 Culture & Sensitivity - Preliminary, Resulted 11/08/16 Anaerobic Culture - Preliminary, Resulted Result Diagram: 11/10/16 0515 11/10/16 0515 General Appearance: Alert, Oriented X3, Cooperative, No Acute Distress Extremities: Distal Pulses Palpable, No Compartment Syndrom Noted, Thigh & Calf Soft/Nontender Postop Sensory Motor: Distal Motor Intact, Distal Sensation Intact, NVI Distally SURGICAL WOUND : Wound Location/Description Right hip: Island dressing is clean, dry and intact Activity: Ambulate with PT (WBAT c FWW) Catheters: None Assessment & Plan Impression POD #2 status post right revision total hip arthroplasty Problems: Plan Weightbearin% weightbearing right lower extremity with front-wheeled walker DVT prophylaxis: aspirin 325 mg twice a day 6 weeks Physical therapy for transfers, progressive ambulation, therapeutic exercise Wound care: change dressing every 2-3 days or as needed if soiled Hip percussion positions are again reviewed with the patient. Hip precaution positions to prevent dislocation: No flexing forward past 90, no crossing the legs at the knee, no active abduction for 6 weeks after surgery Discharge plan: Discharge to SNF today for daily physical therapy & occupational therapy x 1 month. Patient is 50% weight bearing Follow-up plan: In 2 weeks at [facility] with GOMEZ for wound check and at [address] Olsen with x-rays Pain Management: Ibuprofen, Percocet, Vistaril VTE Prophylaxis: SCDs, Other (as per ortho) Resuscitation Status: CPR: Attempt Resuscitation Merline Berger PA-C Nov 11, 2016 07:59
--- NOTE | 2016-11-11 08:36 | PCM.DIORTH ---
Ortho Discharge Instruction Date of Service: Nov 11, 2016 Dates of Hospitalization Date of Hospital Admission Nov 08, 2016 at 13:23 Providers Admitting Physician: Tate Olsen DO Primary Care Physician: Tate Grant MD Attending Physician: Tate Olsen DO Diet Discharge Diet: No restrictions Activity Discharge Activity-General: Try not to overdue, Balance rest and activity, Elevate & ice extremity Right Lower Extremity: % of Weight Bearing (50% ) Discharge Assist Device: Front Wheeled Walker Dressing and Incisional Care Discharge Dressing Care: Keep dressing clean, dry & intact Discharge Hygiene: May shower (see instructions below) Additional Instructions Discharge Instructions Weightbearin% weightbearing on the right lower extremity with front- wheeled walker DVT prophylaxis: aspirin 325 mg twice a day 6 weeks Physical therapy and occupational therapy for transfers, progressive ambulation , therapeutic exercise, ADL's Wound care: Change dressing every 2-3 days or as needed if soiled Hip precaution positions to prevent dislocation: No flexing forward past 90, no crossing the legs at the knee, no active abduction for 6 weeks after surgery On 11/13 the patient may shower if the wound has no drainage present. Wound may be uncovered to shower. Let soap and water run over the wound, pat dry and apply a new dressing. Follow Up Plan Follow Up Plan Follow-up at [facility] in 2 weeks with PA for wound check and at [address] Olsen with x-ray Call your provider for: Fever, Chills, Shortness of breath, Vomitting, Drainage at incision (that is increasing or looks like pus), Wound redness ( that is spreaading) Merline Berger PA-C Nov 11, 2016 08:36
[2016-11-11] MEDS ORDERED: OXYC1TAB24 PO (08:38)
[2016-11-11] MEDS: Senna-Docusate 8.6-50 mg Tablet PO SCH ×2 (10:11→20:06)
[2016-11-11] MEDS: buPROPion SR 100 mg ER12 Tablet PO SCH (10:16)
[2016-11-11] MEDS: LORazepam 1 mg Tablet PO PRN ×2 (11:15→23:07)
[2016-11-11 12:14] VITALS: BP 84/50; PULSE 94; RESP 16; O2SAT 91
--- NOTE | 2016-11-11 12:56 | PCM.PNMED ---
Subjective Date of Service Nov 11, 2016 Subjective Pt still having episodes of Hypotension. Exam Vital Signs Vital Sign - Last Date Time Temp Pulse Resp B/P Pulse Ox O2 Delivery O2 Flow Rate FiO2 11/11/16 12:14 36.9 94 16 84/50 91 Room Air 11/08/16 23:59 2.00 Intake and Output 11/10/16 11/10/16 11/11/16 Cumulative From/Thru 15:00 23:00 07:00 10/29/16 15:19 - 11/11/16 06:18 Intake Total 2610 ml 800 ml 91082 ml Output Total 400 ml 1750 ml 4130 ml Balance 2210 ml -950 ml 7153 ml Intake Oral 760 ml 800 ml 5193 ml IV Total 1850 ml 6090 ml Output Urine Total 400 ml 1750 ml 3780 ml Estimated Blood Loss 350 ml # Voids 4 # Bowel Movements 0 0 0 Exam General: Alert, Oriented X3, Cooperative Chest & Lungs: Chest Wall Normal, Clear to auscultation & percussion Cardiovascular: Exam Unremarkable, Regular Rate/Rhythm, Normal S1, Normal S2 Abdomen: Non-tender, Non-distended, Benign Musculoskeletal: Other (Bandaged after procedure, no signs of bleeding, ) Extremities: Normal bilaterally, Other (circulation intact) Neurological: Grossly Neurologically Intact, Cranial Nerves 2-12 Intact, Normal Speech, Strength Normal 4/4 ext IVs and Medications Medications Reviewed: Medications were reviewed in detail Lab and Diagnostics Result Diagram: 11/10/1651411/10/16514 Assessment & Plan Patient is a 51 yo male with pmh of anxiety, alcohol abuse, guillain barre syndrome (2010), HTN, who has been admitted after a total hip replacement. >R Hip replacement- poa, active. interval revision of the right hip arthroplasty with a total right hip arthroplasty - managed by primary Surgery team - PT- Recs SNF. > HTN with episodes of Hypotension- - temporarily hypotensive post procedure with repeat episodes. Likely due to combination of narcotics, Lorazepam, and high dose of Seroquel. - on propranolol at home, decreased dose to 30mg BID as pt says often takes 1 tablet every second day. - Pt still with low BP, will hold Propranolol for now. Seems was started due to SNS Stimulation associated with GBS. - Would resume if BP becomes elevated. - Decreased doses of Lorazepam, Quetiapine. See below. > Anxiety - on multiple meds : buproprion, hydroxyzine, Quetiapine - will continue home meds, pls hold the medication if patient is drowsy - Can continue Lorazepam at dec dose to 1mg TID for now, titrate back up as tolerate - Will titrate down Quetiapine dose from 800mg to 600mg nightly as may be contributing to lower BP and sedation. Avoid Quetiapine withdrawal so dec by 200mg initially. Can decrease by 100mg every 3-4 days as needed. - Will need to follow up with outpatient Psychiatrist Dr. Luiz De Jesus to go over medication changes. > h/o Alcohol abuse with hx of severe withdrawal- stable. -last drink 7 days ago, alcohol levels negligible - unlikely to go in withdrawals, will monitor on tele > h/o [place] - currently stable, has been treated - will monitor Dispo- Pt is stable from medical perspective for discharge to SNF with continued monitoring of his blood pressure. See med changes below. Discharge Med Recs- - Held Propranol due to low blood pressure. Can resume if becomes hypertensive. - Can continue Lorazepam at dec dose to 1mg TID for now, titrate back up as tolerate - Will titrate down Quetiapine evening dose from 800mg to 600mg nightly as may be contributing to lower blood pressure and sedation. Avoid Quetiapine withdrawal so decrease by 100mg every 2 days as needed. - Will need to follow up with outpatient Psychiatrist Dr. Luiz De Jesus to go over medication changes in 1 week. Pain Evaluation: Adequate Pain Control VTE Prophylaxis: SCDs, Other (as per ortho) VTE Mechanical Devices: Intermittant Pneumatic CD Resuscitation Status: CPR: Attempt Resuscitation Lucio Flores MD Nov 11, 2016 12:56
[2016-11-11] MEDS ORDERED: QUET100T69 PO (13:00)
[2016-11-11] MEDS ORDERED: LORA-303 PO (13:00)
[2016-11-11] MEDS: hydrOXYzine Pamoate 25 mg Capsule PO PRN ×2 (17:18→23:06)
[2016-11-11 20:20] VITALS: BP 100/66; PULSE 81; RESP 16; O2SAT 96
[2016-11-12] MEDS: oxyCODONE-Acetamin 5-325 mg Tablet PO PRN ×4 (02:35→16:50)
[2016-11-12] MEDS: Sodium Chloride LOK Flush 10 mL Syringe IV SCH ×2 (02:36→08:55)
[2016-11-12 04:25] VITALS: BP 110/71; PULSE 79; RESP 16; O2SAT 94
--- NOTE | 2016-11-12 05:49 | PCM.PNORTH ---
Subjective Date of Service: Nov 12, 2016 Visit Information: Reason for Visit Right Hip Loosening Of Prosthetic Surgery/Surgery Date R ALEXYS REVISION 11/08/16 Post-Op Day # Date of Admission: Nov 08, 2016 at 13:23 Hospital Day # Subjective Found patient sleeping and easily awakened. No complaints of pain at this time. Discussed anticipated discharge to prison facility when insurance or saucerization is acquired and patient is aware of this. Postop General: No Complaints, No Shortness of Breath, No Chest Pain, Good Appetite Pain Management: PO Objective Exam Objective Alert and oriented 3 and pleasant. Postoperative dressing is clean dry and intact Calf and thigh are mildly swollen but are soft and nontender Toe wiggle and sensation are intact at right lower extremity distally Felipe is absent BRANDIN hose are absent Abduction wedges in place Left lower extremity SCDs in place, right SCD is absent Gait 15-25 feet with PT. Physical therapy Recommendation is for discharge to prison facility Vital Signs and I/O Vital Sign - Last Date Time Temp Pulse Resp B/P Pulse Ox O2 Delivery O2 Flow Rate FiO2 11/12/16 04:25 36.5 79 16 110/71 94 Room Air 11/08/16 23:59 2.00 Intake and Output 11/11/16 11/11/16 11/12/16 Cumulative From/Thru 15:00 23:00 07:00 10/29/16 15:19 - 11/12/16 05:30 Intake Total 1000 ml 1186 ml 1457 ml 60088 ml Output Total 800 ml 1900 ml 6830 ml Balance 1000 ml 386 ml -443 ml 8096 ml Intake Oral 1186 ml 1457 ml 7836 ml IV Total 1000 ml 7090 ml Output Urine Total 800 ml 1900 ml 6480 ml Estimated Blood Loss 350 ml # Voids 4 # Bowel Movements 0 0 0 Lab & Micro Results Microbiology 11/08/16 Gram Stain - Final, Resulted 11/08/16 Culture & Sensitivity - Preliminary, Resulted 11/08/16 Anaerobic Culture - Preliminary, Resulted Result Diagram: 11/10/1651411/[id number]/16514 General Appearance: Alert, Oriented X3, Cooperative, No Acute Distress Extremities: No Compartment Syndrom Noted, Thigh & Calf Soft/Nontender Postop Sensory Motor: Movement in Toes, Distal Sensation Intact Activity: Activity per PT, Ambulate with PT (50% weightbearing at the right lower extremity using front-wheeled walker) Catheters: None Assessment & Plan Plan Postop day #4 from existing right hip hemiarthroplasty revision to total hip arthroplasty on 11/08/[address] Tate Olsen. Continue Weightbearin% weightbearing right lower extremity with front- wheeled walker Continue DVT prophylaxis: aspirin 325 mg twice a day 6 weeks Continue Physical therapy for transfers, progressive ambulation, therapeutic exercise Wound care: change dressing every 2-3 days or as needed if soiled. Nursing please fit patient with bilateral BRANDIN hose. Nursing please add right lower extremity SCD in effort to reduce swelling at right lower extremity. Hip percussion positions are again reviewed with the patient. Hip precaution positions to prevent dislocation: No flexing forward past 90, no crossing the legs at the knee, no active abduction for 6 weeks after surgery Discharge plan: Discharge to SNF today or when insurance authorization is obtained for daily physical therapy & occupational therapy x 1 month. Patient is 50% weight bearing Follow-up plan: In 2 weeks at [facility] with PA for wound check and at [address] Oslen with x-rays VTE Prophylaxis: SCDs (bilateral SCDs), BRANDIN Hose (bilateral BRANDIN hose), Other ( ASA 325 mg EC by mouth twice a day 6 weeks postop for DVT prophylaxis) Resuscitation Status: CPR: Attempt Resuscitation Benji Austin PA-C Nov 12, 2016 05:49
[2016-11-12] MEDS: Pantoprazole 20 mg ER24 Tablet PO SCH (06:22)
[2016-11-12] MEDS: hydrOXYzine Pamoate 25 mg Capsule PO PRN ×3 (08:56→16:50)
[2016-11-12] MEDS: Senna-Docusate 8.6-50 mg Tablet PO SCH (08:56)
[2016-11-12] MEDS: LORazepam 1 mg Tablet PO PRN ×2 (08:56→16:50)
[2016-11-12] MEDS: buPROPion SR 100 mg ER12 Tablet PO SCH (08:57)
[2016-11-12 13:03] VITALS: BP 122/81; PULSE 104; RESP 16; O2SAT 94
== END 2016-11-12 17:00 | DRG 301 ==
LOC: SAS 06:15 → OSC 13:23
PROVIDERS: ADMIT Orthopaedic Surgery; ATTEND Orthopaedic Surgery
PROC: 0SP90JZ Removal of Synthetic Substitute from Right Hip Joint, Open Approach (ICD-10-PCS; 2016-11-08)
PROC: 0SR904A Replacement of Right Hip Joint with Ceramic on Polyethylene Synthetic Substitute, Uncemented, Open Approach (ICD-10-PCS; principal; 2016-11-08 07:30)
DX: T84.030A Mechanical loosening of internal right hip prosthetic joint, initial encounter (principal); G62.9 Polyneuropathy, unspecified; I10 Essential (primary) hypertension; Z87.891 Personal history of nicotine dependence; F41.9 Anxiety disorder, unspecified; F10.10 Alcohol abuse, uncomplicated; I95.81 Postprocedural hypotension